=== PATIENT | male | born 1965 | race Caucasian/White ===

== ENCOUNTER → 2018-01-15 | Outpatient (CLI) | payer OTHER | LOC: LAB.O 15:51 | PROVIDERS: ATTEND Nurse Practitioner Family | DX: N30.01 Acute cystitis with hematuria (principal) ==

== ENCOUNTER → 2018-01-22 | Outpatient (CLI) | payer OTHER | LOC: LAB.O 10:37 | PROVIDERS: ATTEND Nurse Practitioner Family | DX: N30.01 Acute cystitis with hematuria (principal) ==

== ENCOUNTER → 2018-09-04 | Outpatient (CLI) | payer OTHER | LOC: LAB.O 14:16 | PROVIDERS: ATTEND Urology | DX: D40.8 Neoplasm of uncertain behavior of other specified male genital organs (principal); N40.2 Nodular prostate without lower urinary tract symptoms ==

== ENCOUNTER → 2018-09-04 | Outpatient (CLI) | payer SELFPAY | LOC: LAB.O 14:24 | PROVIDERS: ATTEND Urology | DX: D40.8 Neoplasm of uncertain behavior of other specified male genital organs (principal); N40.2 Nodular prostate without lower urinary tract symptoms ==